=== PATIENT | female | born 1965 | race Two or more races ===

== ENCOUNTER 2025-06-23 16:40 | Inpatient (IN) | payer OTHER ==
[~2025-06-23] VITALS: Ht 162.6 cm; Wt 70.8 kg
[2025-06-23] MEDS ORDERED: METFORMIN HCL1000 M2 PO (17:02)
[2025-06-23] MEDS ORDERED: FENOFIBRIC ACI105 MG PO (17:02)
[2025-06-23] MEDS ORDERED: DAFLONEX-XL 11300 MG PO (17:02)
[2025-06-23] MEDS ORDERED: COZAAR50 MG PO (17:03)
[2025-06-23] MEDS ORDERED: ATORVASTATIN CA20 MG PO (17:03)
--- NOTE | 2025-06-23 17:08 | NUR ---
PACIENTE ALERTA Y ORINETADA X3 QUIEN REFIERE VENIR POR HEMATURIA DESDE HACE UNOS RODRIGUEZ. REFIERE TENER CUAGULOS GRANDES.
[2025-06-23] MEDS ORDERED: FAMOTIDINE/PF 20 MG in 0.9 % SODIUM CHLORIDE 8 ML IV PUSH ONE (17:45)
[2025-06-23] MEDS ORDERED: ACETAMINOPHEN 500 MG GEL..CAP PO ONE ×2 (17:45→18:06)
[2025-06-23] MEDS ORDERED: ONDANSETRON HCL 4 MG in 0.9 % SODIUM CHLORIDE 50 ML IV ONE (17:45)
[2025-06-23] MEDS ORDERED: 0.9 % SODIUM CHLORIDE 1,000 ML IV SCH (17:45)
[2025-06-23] MEDS ORDERED: ONDANSETRON HCL 2 MG/ML VIAL ONE (18:06)
[2025-06-23] MEDS ORDERED: FAMOTIDINE/PF 20 MG/2 ML VIAL ONE (18:06)
--- NOTE | 2025-06-23 19:09 | NUR ---
SE EDUCA PTE SOBRE TX Y ESTA REFIERE ENTENDER Y ACEPTAR. SE PROCEDE A COLECTAR MUESTRAS DE LABORATORIO Y CANALIZAR BAJO MEDIDAS ASEPTICAS Y SE ADMINISTRAN MEDICAMENTOS RIP ORDEN MEDICA.
[2025-06-23 19:18] LABS: BASO % 0.3 % (0.1-1.2); EOS # 0.04 (0.04-0.54); EOS % 0.3 % (0.7-7.0); LYMPH # 1.72 (1.18-3.74); LYMPH % 11.6 % (19.3-53.1); MEAN PLATELET VOLUME 8.80 fl (9.4-12.4); MONO # 1.29 (0.24-0.82); MONO % 8.7 % (4.7-12.5); NEUT # 11.73 (1.56-6.13); NEUT % 78.9 % (34.0-71.1); RED CELL DISTRIBUTION WIDTH 11.9 % (11.6-14.4)
[2025-06-23 19:40] LABS: INR 1.03
[2025-06-23 19:55] LABS: ERYTHROCYTE SEDIMENTATION RATE 11 mm/hr (0-30)
[2025-06-23 19:57] LABS: URINE BLOOD LARGE; URINE LEUKOCYTE LARGE; URINE NITRATE POSITIVE
[2025-06-23 20:02] LABS: URINE PROTEIN >=300 (NEGATIVE); URINE UROBILINOGEN >= 8.0 E.U./dl
[2025-06-23 20:03] LABS: URINE APPEARANCE BLOODY; URINE BILIRRUBIN LARGE (NEGATIVE); URINE COLOR RED; URINE GLUCOSE 100 MG/DL (NEGATIVE); URINE KETONE 40 (NEGATIVE)
[2025-06-23 20:10] LABS: URINE RBC LOADED /HPF
[2025-06-23 20:11] LABS: URINE BACTERIA FEW; URINE CRYSTALS NEGATIVE /HPF; URINE EPITHELIAL CELLS 0-4 /HPF; URINE WBC 31-40 /hpf
[2025-06-23] MEDS ORDERED: CEFTRIAXONE SODIUM 2,000 MG in 0.9 % SODIUM CHLORIDE 100 ML IV ONE (22:45)
[2025-06-23] MEDS ORDERED: CEFTRIAXONE SODIUM 2,000 MG VIAL ONE (23:17)
[2025-06-24] MEDS ORDERED: INSULIN LISPRO 1,000 UNIT/10 ML UNITS SUBCUTANEO PRN ×2 (00:15→12:30)
[2025-06-24] MEDS ORDERED: DEXTROSE 50 % IN WATER 0.5 G/ML DISP.SYRIN IV PRN ×2 (00:15→12:30)
--- NOTE | 2025-06-24 02:37 | NUR ---
PTE REHUSA QUE SE LE COLOQUE EISENBERG, YA QUE NO TIENE PROBLMAS AL ORINAR
[2025-06-24 14:09] VITALS: BP 110/80
[2025-06-24] MEDS ORDERED: TAMSULOSIN HCL 0.4 MG CAP PO SCH (16:07)
[2025-06-24] MEDS ORDERED: TAMSULOSIN HCL 0.4 MG CAP PO ONE (23:45)
[2025-06-25 02:39] VITALS: BP 99/62; O2SAT 99
[2025-06-25 06:21] LABS: BASO % 0.9 % (0.1-1.2); EOS # 0.20 (0.04-0.54); EOS % 2.7 % (0.7-7.0); LYMPH # 2.56 (1.18-3.74); LYMPH % 34.6 % (19.3-53.1); MEAN PLATELET VOLUME 9.20 fl (9.4-12.4); MONO # 1.19 (0.24-0.82); NEUT # 3.36 (1.56-6.13); NEUT % 45.6 % (34.0-71.1); RED CELL DISTRIBUTION WIDTH 12.3 % (11.6-14.4)
[2025-06-25 06:25] LABS: INR 1.01
[2025-06-25 06:37] LABS: MONO % 16.1 % (4.7-12.5)
[2025-06-25 06:51] LABS: BUN CREA RATIO 12.0 (7.0-25.0); CREATININE SERUM 0.59 mg/dL (0.55-1.02); GFR 104.32; GLUCOSE FASTING 105.0 mg/dL (65-100); OSMOLALITY SERUM 278.0 MOSM/KG (275-295)
[2025-06-25 08:47] VITALS: BP 898/57
[2025-06-25 16:37] VITALS: BP 114/72; O2SAT 97
[2025-06-25] MEDS ORDERED: CEFTRIAXONE SODIUM 2,000 MG VIAL IV SCH (17:00)
[2025-06-26 01:47] VITALS: BP 121/71; O2SAT 96
[2025-06-26 09:16] VITALS: BP 122/72
== END 2025-06-26 10:27 | disposition home or self-care (01) | DRG 694 ==
LOC: ER 16:41 → SEC-K 06-24 13:37 → MEDI 06-24 13:37
PROVIDERS: General Practice; ADMIT Internal Medicine; ATTEND Internal Medicine
PROC: BW21ZZZ Computerized Tomography (CT Scan) of Abdomen and Pelvis (ICD-10-PCS; principal; 2025-06-23)
PROC: BW21YZZ Computerized Tomography (CT Scan) of Abdomen and Pelvis using Other Contrast (ICD-10-PCS; 2025-06-25)
DX: N20.0 Calculus of kidney (principal); N39.0 Urinary tract infection, site not specified; R31.0 Gross hematuria